=== PATIENT | female | born 1965 | race Caucasian/White ===

== ENCOUNTER 2022-01-28 05:46 | Day surgery (SDC) | payer BC ==
[~2022-01-28 05:46] MED LIST: Sodium Chloride 0.9% 10 ML Syringe FLUSH SCH
[2022-01-28] MEDS ORDERED: Midazolam 1 MG/ML 2 ML SDV IV ONE ×7 (05:47→07:17)
[2022-01-28] MEDS ORDERED: fentaNYL 100 MCG/2 ML SDV IV ONE ×4 (05:47→07:19)
[2022-01-28] MEDS ORDERED: Dextrose 5%-0.45% NaCl 1,000 ML IV SCH (06:00)
[2022-01-28] MEDS ORDERED: Sodium Chloride 0.9% 10 ML Syringe FLUSH PRN (06:00)
[2022-01-28] MEDS ORDERED: Midazolam 1 MG/ML 2 ML SDV ONE (06:44)
[2022-01-28] MEDS ORDERED: fentaNYL 100 MCG/2 ML SDV ONE (06:44)
== END 2022-01-28 09:10 | disposition home or self-care (01) ==
LOC: DL.ENDO 05:46
PROVIDERS: ATTEND Internal Medicine Gastroenterology
DX: Z12.11 Encounter for screening for malignant neoplasm of colon (principal); K57.30 Diverticulosis of large intestine without perforation or abscess without bleeding; G47.00 Insomnia, unspecified; R73.9 Hyperglycemia, unspecified; Z98.890 Other specified postprocedural states; Z91.048 Other nonmedicinal substance allergy status
CPT/HCPCS: 45378; J2250; J3010; J7042